=== PATIENT | male | born 1950 | race Caucasian/White ===

== ENCOUNTER 2022-09-05 22:51 | Emergency (ER) | payer OTHER ==
[~2022-09-05] VITALS: Ht 190.5 cm; Wt 150.0 kg
[2022-09-05 23:27] LABS: Basophils # (auto) 0.1 10 ^3/uL (0-0.2); Basophils % (auto) 0.8 % (0.0-2.0); Eosinophils # (auto) 0.1 10 ^3/uL (0-0.8); Eosinophils % (auto) 1.2 % (0.0-7.0); Hematocrit 41.9 % (41.0-53.0); Lymphocytes # (auto) 3.1 10 ^3/uL (0.4-5.4); Lymphocytes % (auto) 33.3 % (10.0-50.0); Mean Corpuscular Hemoglobin 31.2 pg (28.0-32.0); Mean Corpuscular Hgb Conc. 33.5 g/dL (32.0-36.0); Mean Corpuscular Volume 93.2 fL (80.0-100.0); Monocytes # (auto) 0.8 10 ^3/uL (0-1.3); Monocytes % (auto) 8.7 % (0.0-12.0); Neutrophils # (auto) 5.2 10 ^3/uL (1.6-8.6); Red Cell Distribution Width 13.8 % (11.8-14.3); White Blood Cell 9.2 10^3/uL (4.4-10.8)
[2022-09-05 23:34] VITALS: BP 122/73
[2022-09-05 23:38] LABS: INR 0.97 (0.9-1.15); Partial Thromboplastin Time 29.4 sec (24.6-33.4)
[2022-09-05 23:42] LABS: Albumin 3.7 g/dL (3.4-5.0); BUN/Creatinine Ratio 22.4; Calcium 8.3 mg/dL (8.5-10.1); Potassium 3.6 mmol/L (3.5-5.1)
[2022-09-05 23:45] LABS: Bilirubin, Total 0.3 mg/dL (0.2-1.0); Total Protein 7.8 g/dL (6.4-8.2)
[2022-09-06 00:52] LABS: Urine Bacteria NONE SEEN /hpf (None Seen); Urine Blood Negative /uL (Negative); Urine Specific Gravity 1.023 (1.001-1.035); Urine WBC 1 /hpf (0 - 3)
[2022-09-06 00:55] LABS: Amphetamine Screen, Urine NEGATIVE (NEGATIVE); Barbiturate Scree,Urine NEGATIVE (NEGATIVE); Benzodiazephine Screen, Urine NEGATIVE (NEGATIVE); Cannabinoid Screen, Urine NEGATIVE (NEGATIVE); Cocaine Screen, Urine NEGATIVE (NEGATIVE); Opiate Scree,Urine NEGATIVE (NEGATIVE); Phencyclidine Screen, Urine NEGATIVE (NEGATIVE)
== END 2022-09-06 02:14 | disposition home or self-care (01) ==
LOC: EDBD 22:51 → ER 22:51
DX: R55 Syncope and collapse (principal); F10.129 Alcohol abuse with intoxication, unspecified; I10 Essential (primary) hypertension
CPT/HCPCS: 36415; 70450; 71045; 80053; 80307; 80320; 81001; 82962; 84484; 85025; 85610; 85730

== ENCOUNTER 2025-07-03 15:02 | Inpatient (IN) | payer OTHER ==
[~2025-07-03] VITALS: Ht 188 cm; Wt 135.0 kg
[~2025-07-03 15:02] MED LIST: AMLO1TAB21 PO; ATOR20TA50 PO; HYDR25TA5 PO; LOS25T PO; MELO15TA29 PO; TADA5TAB16 PO; TAMS0.4C39 PO
[2025-07-03 15:16] VITALS: PULSE 126; RESP 26; O2SAT 98
[2025-07-03] MEDS ORDERED: CEFEPIME 1GM/50ML 50 ML IV ONE (15:30)
--- NOTE | 2025-07-03 15:30 | ED.PDOC ---
SOB-HPI HPI Comments 74 year old male with PMHx HTN presents to the ED via EMS with a chief complaint of shortness of breath onset last night. Per EMS, patient began experiencing shortness of breath last night, upon ED arrival O2 sat was 89% on RA, was placed on NRB. Upon ED arrival patient was tachycardiac with HR of 120, temperature 103.1 F, O2 sat 96% on NRB. No other symptoms or modifying factors present at this time. Chief Complaint: Shortness of Breath Time Seen by MD: 15:20 Primary Care Provider: NONE Reviewed notes: Medications, Allergies Information Source: Patient, Emergency Med Personnel Mode of Arrival: EMS Severity: Moderate Timing: Hours Duration: Since onset Context: At Rest PE Risk Factors: None History of: None Prehospital treatment: Oxygen Modifying Factors: Nothing Past Medical History PAST MEDICAL HISTORY: HTN Surgical History: Denies all surgeries Family History Family History: Unknown Social History Smoker: Non-Smoker Alcohol: Denies ETOH Use Drugs: Denies Drug Use Lives In: Home Constitutional: denies: chills, diaphoresis, fatigue, fever, malaise, sweats, weakness, others EENTM: denies: blurred vision, double vision, ear bleeding, ear discharge, ear drainage, ear pain, ear ringing, eye pain, eye redness, hearing loss, mouth pain, mouth swelling, nasal discharge, nose bleeding, nose congestion, nose pain, photophobia, tearing, throat pain, throat swelling, voice changes, others Respiratory: reports: shortness of breath; denies: cough, hemoptysis, orthopnea, SOB at rest, SOB with excertion, stridor, wheezing, others Cardiovascular: denies: chest pain, dizzy spells, diaphoresis, Dyspnea on exertion, edema, irregular heart beat, left arm pain, lightheadedness, palpitations, PND, syncope, others Gastrointestinal: denies: abdomen distended, abdominal pain, blood streaked bowels, constipated, diarrhea, dysphagia, difficulty swallowing, hematemesis, melena, nausea, poor appetite, poor fluid intake, rectal bleeding, rectal pain, vomiting, others Genitourinary: denies: burning, dysuria, flank pain, frequency, hematuria, incontinence, penile discharge, penile sore, pain, testicle pain, testicle swelling, urgency, others Neurological: denies: dizziness, fainting, headache, left sided numbness, left sided weakness, numbness, paresthesia, pre-existing deficit, right sided numbness, right sided weakness, seizure, speech problems, tingling, tremors, weakness, others Musculoskeletal: denies: back pain, gout, joint pain, joint swelling, muscle pain, muscle stiffness, neck pain, others Integumetry: denies: bruises, change in color, change in hair/nails, dryness, laceration, lesions, lumps, rash, wounds, others Allergic/Immunocompromised: denies: Difficulty Healing, Frequent Infections, Hives, Itching, others Hematologic/Lymphatic: denies: anemia, blood clots, easy bleeding, easy bruising, swollen glands, others Endocrine: denies: excessive hunger, excessive sweating, excessive thirst, excessive urination, flushing, intolerance to cold, intolerance to heat, unexpl ained weight gain, unexplained weight loss, others Psychiatric: denies: anxiety, bipolar disorder, depression, hopeless, panic disorder, schizophrenia, sleepless, suicidal, others All Other Systems: Reviewed and Negative Physical Exam General Appearance: Moderate Distress, Normal, Other (febrile) HEENT: Normal ENT Inspection, Pharynx Normal, TMs Normal Neck: Full Range of Motion, Non-Tender, Normal, Normal Inspection Respiratory: Chest Non-Tender, Other (Tachypneic ) Cardiovascular: No Edema, No JVD, No Murmur, No Gallop, Tachycardia Breast Exam: Deferred Gastrointestinal: No Organomegaly, Non Tender, No Pulsatile Mass, Normal Bowel Sounds, Soft Genitalia: Deferred Pelvic: Deferred Rectal: Deferred Extremities: No calf tenderness, Normal capillary refill, Normal inspection, Normal range of motion, Non-tender, No pedal edema Musculoskeletal : Apperance: Normal Neurologic: Alert, top closer II-XII nml as Tested, No Motor Deficits, Normal Affect, Normal Mood, No Sensory Deficits Cerebellar Function: Normal Reflexes: Normal Skin: Dry, Normal Color, Warm Lymphatic: No Adenopathy Was a procedure done? Was a procedure done?: No Differential Dx Differential Diagnosis: Anxiety, Bronchitis, CHF, COPD, Hyponatremia, Myocardial infarction, Pneumonia X-Ray, Labs, Meds, VS Vital Signs Date Time Temp Pulse Resp B/P (MAP) Pulse Ox O2 Delivery O2 Flow Rate FiO2 07/03/25 17:11 99.8 101 22 123/80 (94) 96 99.8 07/03/25 17:08 104 07/03/25 16:22 114 07/03/25 15:35 18 95 Nasal Cannula* 4 36 07/03/25 15:16 103.1 138 26 129/64 (85) 98 103.1 07/03/25 15:16 126 26 98 Non-Rebreather 15 N/A 07/03/25 15:07 103.1 120 38 135/80 96 103.1 Lab Test 07/03/25 15:40 07/03/25 15:28 Range/Units Urine Color Yellow Yellow Urine Clarity Clear Clear Urine pH 5.5 5.0-9.0 Urine Specific [place] 1.020 1.001-1.035 Urine Protein Trace H Negative Urine Ketones Trace Negative Urine Blood Trace H Negative /uL Urine Nitrite Negative Negative Urine Bilirubin Negative Negative Urine Urobilinogen Normal Negative mg/dL Urine Leukocyte Esterase Negative Negative /uL Urine RBC 4 0 - 3 /hpf Urine Microscopic WBC 1 0-3 /HPF Urine Squamous Epithelial Cells None seen <5 /hpf Urine Bacteria None seen None Seen /hpf Urine Hyaline Casts Few 0 - 2 /lpf Urine Mucus Few None Seen Urine Glucose Normal Normal mg/dL White Blood Count 6.1 4.4-10.8 10^3/uL Red Blood Count 4.74 4.5-5.90 10^6/uL Hemoglobin 14.3 13.5-17.5 g/dL Hematocrit 42.6 41.0-53.0 % Mean Corpuscular Volume 89.8 80.0-100.0 fL Mean Corpuscular Hemoglobin 30.2 28.0-32.0 pg Mean Corpuscular Hemoglobin Concent 33.6 32.0-36.0 g/dL Red Cell Distribution Width 13.8 11.8-14.3 % Platelet Count 246 140-450 10^3/uL Mean Platelet Volume 7.7 6.9-10.8 fL Neutrophils (%) (Auto) 37.0-80.0 % Lymphocytes (%) (Auto) 10.0-50.0 % Monocytes (%) (Auto) 0.0-12.0 % Basophils (%) (Auto) 0.0-2.0 % Neutrophils # (Auto) 1.6-8.6 10 ^3/uL Lymphocytes # (Auto) 0.4-5.4 10 ^3/uL Monocytes # (Auto) 0-1.3 10 ^3/uL Differential Total Cells Counted 100.0 100 Neutrophils % (Manual) 72.0 37.0-80.0 Band Neutrophils % (Manual) 17.0 Lymphocytes % (Manual) 7.0 L 10.0-50.0 Monocytes % (Manual) 4.0 0-12 Eosinophils % (Manual) 0 0-7 Basophils % (Manual) 0 0.0-2.0 Metamyelocytes % (manual) 0 Myelocytes % (Manual) 0 Promyelocytes % (Manual) 0 Blast Cells % (Manual) 0 Reactive Lymphocytes 0 Platelet Estimate Adequate Red Blood Cell Morphology Normal Prothrombin Time 11.1 9.3-11.8 sec Prothrombin Time INR 1.05 0.9-1.15 Activated Partial Thromboplast Time 22.7 L 24.5-34.5 SEC Sodium Level 144 136-145 mmol/L Potassium Level 4.0 3.5-5.1 mmol/L Chloride Level 105 98-107 mmol/L Carbon Dioxide Level 28 20-31 mmol/L Anion Gap 11 5-15 Blood Urea Nitrogen 13 9-23 mg/dL Creatinine 1.02 0.700-1.30 mg/dL Glomerular Filtration Rate Calc 78 >90 mL/min BUN/Creatinine Ratio 12.7 10.0-20.0 Serum Glucose 103 74-106 mg/dL Lactic Acid Level 1.9 0.4-2.0 mmol/L Calcium Level 8.9 8.7-10.4 mg/dL Total Bilirubin 0.7 0.2-1.0 mg/dL Aspartate Amino Transferase (AST) 25 13-40 U/L Alanine Aminotransferase (ALT) 35 7-40 U/L Alkaline Phosphatase 71 46-116 U/L Troponin I High Sensitivity 3 L </=54 ng/L Total Protein 7.3 5.7-8.2 g/dL Albumin 4.2 3.2-4.8 g/dL Current Medications Medications (Trade) Dose Ordered Sig/Armando Route Start Time Stop Time Status Last Admin Lactated Ringer's 2,450 ml @ 2,450 mls/hr ONCE ONCE IV 07/03/25 15:30 07/03/25 16:29 DC 07/03/25 15:49 Vancomycin HCl 250 ml @ 250 mls/hr ONCE ONCE IV 07/03/25 15:30 07/03/25 16:29 DC 07/03/25 16:55 Albuterol (Ventolin Medneb) 5 mg ONCE ONCE NEB 07/03/25 15:30 07/03/25 15:31 DC 07/03/25 15:43 Ipratropium Henderson (Atrovent Medneb) 0.5 mg ONCE ONCE NEB 07/03/25 15:30 07/03/25 15:31 DC 07/03/25 15:43 Acetaminophen (Ofirmev) 1,000 mg ONCE ONCE IV 07/03/25 15:30 07/03/25 15:31 DC 07/03/25 15:41 Cefepime HCl 50 ml @ 50 mls/hr ONCE ONCE IV 07/03/25 16:15 07/03/25 17:14 DC 07/03/25 16:09 [place] [id number] Ph: [phone] DIAGNOSTIC IMAGING Diagnostic Imaging Report : [id number] Signed PATIENT: ANIL AVILES PACCT: [id number] UNIT: [id number] : 1950 LOC: ER ROOM / BED: / AGE / SEX: 74 / M ADM STATUS: REG ER SERVICE 1521 ORDERING PHYSICIAN: MYRON WEAVER MD PROCEDURE(s): CXRP - CHEST PORTABLE REASON: sob ORDER NUMBER(s): [id number], ACCESSION NUMBER(s): [id number] CHEST RADIOGRAPH Indication: sob Technique: Single frontal view of the chest was obtained Comparison: CXRP on DOS: 09/05/22 FINDINGS: Lines and Tubes: None Lungs: Persistent prominence to the central interstitium is noted. No previous studies are available for comparison. It would be helpful to obtain the radiographs from 09/05/2022 for comparison. Pleura: No effusion. No pneumothorax. Cardiomediastinal contours: Cardiomegaly is present. Bones: No acute osseous abnormality. IMPRESSION: 1. Prominent interstitial disease in the right base and right upper lung field. 2. Cardiomegaly is ATED BY: REJI POON Jr. DO DICTATED DATE/TIME: 07/03/25 160 SIGNED BY: REJI POON Jr., SIGNED DATE/TIME: 07/03/25 160 CC: Time of 1ST Reevaluation: 15:50 Reevaluation 1ST: Unchanged Patient Education/Counseling: Diagnosis, Treatment, Prognosis Family Education/Counseling: No Family Present SEPSIS Sepsis Screen Date sepsis recognized/suspect: Jul 03, 2025 Time Sepsis recognized/suspect: 152 Recent Procedure: No On Antibiotic Therapy: No Respiratory Rate >20: Yes Heart Rate >90: Yes Temp<36 C (96.8 F) or >38.3 C: Yes SBP <90 or MAP <65 mmHG: No New Acute Mental Status Change: No Is the patient on CPAP, BIPAP,: No Physician Orders [employer] (07/03/25 15:15) Blood Culture (07/03/25 15:15) Chest Portable (07/03/25 15:21) Accucheck (07/03/25 15:21) Notify Md If Map <65 Or Bp<90 (07/03/25 15:21) If Map<65 Start Vasopressor (07/03/25 15:21) Sepsis Reassesment After Fluid (07/03/25 16:21) Vital Signs Date Time Temp Pulse Resp B/P (MAP) Pulse Ox O2 Delivery O2 Flow Rate FiO2 07/03/25 17:11 99.8 101 22 123/80 (94) 96 99.8 07/03/25 17:08 104 07/03/25 16:22 114 07/03/25 15:35 18 95 Nasal Cannula* 4 36 07/03/25 15:16 103.1 138 26 129/64 (85) 98 103.1 07/03/25 15:16 126 26 98 Non-Rebreather 15 N/A 07/03/25 15:07 103.1 120 38 135/80 96 103.1 Laboratory Tests Test 07/03/25 15:28 Lactic Acid Level 1.9 mmol/L (0.4-2.0) White Blood Count 6.1 10^3/uL (4.4-10.8) Medications Medications Dose Ordered Sig/Armando Route Start Time Stop Time Status Last Admin Dose Admin Acetaminophen 1,000 mg ONCE ONCE IV 07/03/25 15:30 07/03/25 15:31 DC 07/03/25 15:41 Albuterol 5 mg ONCE ONCE NEB 07/03/25 15:30 07/03/25 15:31 DC 07/03/25 15:43 Cefepime HCl 50 ml @ 50 mls/hr ONCE ONCE IV 07/03/25 16:15 07/03/25 17:14 DC 07/03/25 16:09 Ipratropium Henderson 0.5 mg ONCE ONCE NEB 07/03/25 15:30 07/03/25 15:31 DC 07/03/25 15:43 Lactated Ringer's 2,450 ml @ 2,450 mls/hr ONCE ONCE IV 07/03/25 15:30 07/03/25 16:29 DC 07/03/25 15:49 Vancomycin HCl 250 ml @ 250 mls/hr ONCE ONCE IV 07/03/25 15:30 07/03/25 16:29 DC 07/03/25 16:55 Departure 1 Departure Time of Disposition: 17:44 ([place] Authorization to admit [facility]: [id number] presents with concern for sepsis and respiratory failure. Patient likely with a multifocal pneumonia. We will empirically cover patient with antibiotics we will not give the patient full fluid boluses patient appears clinically volume overloaded. We will admit patient for further workup and expert consultation) Impression: Primary Impression: Sepsis Additional Impressions: Multifocal pneumonia Suspected congestive heart failure Disposition: ADMITTED INPATIENT Admit to: [facility] Condition: Guarded Critical Care Note Critical Care Time?: Yes Critical care comment: Acute hypoxic respiratory failure Authorized and Performed by: Myron Weaver MD Total critical care time: Approximately 42 minutes Due to a high probability of clinically significant, life threatening deterioration, the patient required my highest level of preparedness to interven e emergently and I personally spent this critical care time directly and personally managing the patient. This critical care time included obtaining a history; examining the patient; pulse oximetry; ordering and review of studies; arranging urgent treatment with development of a management plan; evaluation of patient's response to treatment; frequent reassessment; and, discussions with other providers. This critical care time was performed to assess and manage the high probability of imminent, life-threatening deterioration that could result in multi-organ failure. It was exclusive of separately billable procedures and treating other patients and teaching time. Please see my other sections and the rest of the note for further information on patient assessment and treatment. Stability Stability form required: No Heart Score Heart Score: Heart Score Response (Comments) Value History N/A 0 EKG N/A 0 Age N/A 0 Risk Factors N/A 0 Troponin N/A 0 Total 0 I personally scribed for MYRON WEAVER MD ([email or web address]) on 07/03/25 at 15:30. Electr onically submitted by Tara Menjivar ([email or web address]). I personally scribed for MYRON WEAVER MD ([email or web address]) on 07/03/25 at 16:08. Electronically submitted by Tara Menjivar ([email or web address]). MYRON WEAVER MD Jul 03, 2025 15:30
[2025-07-03] MEDS: ACETAMINOPHEN IV 1000 MG/100ML (10MG/ML) IV ONE (15:41)
[2025-07-03] MEDS: IPRATROPIUM BROM 0.5 MG/2.5ML INH SOL NEB ONE (15:43)
[2025-07-03] MEDS: ALBUTEROL SULF 2.5 MG/0.5ML(0.5%) NEB SOLN NEB ONE (15:43)
[2025-07-03 15:45] LABS: Hematocrit 42.6 % (41.0-53.0); Hemoglobin 14.3 g/dL (13.5-17.5); Mean Corpuscular Hemoglobin 30.2 pg (28.0-32.0); Mean Corpuscular Volume 89.8 fL (80.0-100.0)
[2025-07-03] MEDS: LACTATED RINGER'S 2,450 ML IV ONE (15:49)
[2025-07-03 15:53] LABS: Urine Protein, UAD TRACE (Negative)
[2025-07-03 16:03] LABS: Alanine Aminotransferase 35 U/L (7-40); Albumin 4.2 g/dL (3.2-4.8); Alkaline Phosphatase 71 U/L (46-116); Anion Gap 11 (5-15); BUN/Creatinine Ratio 12.7 (10.0-20.0); Bilirubin, Total 0.7 mg/dL (0.2-1.0); Blood Urea Nitrogen 13 mg/dL (9-23); Calcium 8.9 mg/dL (8.7-10.4); Carbon Dioxide 28 mmol/L (20-31); Chloride 105 mmol/L (98-107); Glucose 103 mg/dL (74-106); Potassium 4.0 mmol/L (3.5-5.1); Sodium 144 mmol/L (136-145); Total Protein 7.3 g/dL (5.7-8.2)
--- NOTE | 2025-07-03 16:03 | DVH ---
CHEST RADIOGRAPH Indication: sob Technique: Single frontal view of the chest was obtained Comparison: CXRP on DOS: 09/05/22 FINDINGS: Lines and Tubes: None Lungs: Persistent prominence to the central interstitium is noted. No previous studies are available for comparison. It would be helpful to obtain the radiographs from 09/05/2022 for comparison. Pleura: No effusion. No pneumothorax. Cardiomediastinal contours: Cardiomegaly is present. Bones: No acute osseous abnormality. IMPRESSION: 1. Prominent interstitial disease in the right base and right upper lung field. 2. Cardiomegaly is
[2025-07-03 16:08] LABS: INR 1.05 (0.9-1.15); Partial Thromboplastin Time 22.7 SEC (24.5-34.5); Prothrombin Time 11.1 sec (9.3-11.8)
[2025-07-03] MEDS: CEFEPIME 1GM/50ML 50 ML IV ONE (16:09)
--- NOTE | 2025-07-03 16:24 | ECG ---
[facility] Test Date: 2025-07-03 Test Time: 16:22:33 Pat Name: ANIL AVILES Department: Room: 0209T Gender: M Pole Maker: PAUL : 1950 Requested By: MYRON WEAVER Order Number: [id number] Reading MD: Crow Fernandez Measurements Intervals [place] Rate: 114 P: 39 ID: [id number] QRS: -58 QRSD: 110 T: -8 QT: 325 QTc: 448 Interpretive Statements Sinus tachycardia Left anterior fascicular block Low voltage, precordial leads Probable anteroseptal infarct, old Electronically Signed On 07-06-2025 19:22:29 PST by Crow Fernandez Please click the below link to view image of tracing.
[2025-07-03 16:36] LABS: Total Cells Counted 100.0 (100)
[2025-07-03 16:37] LABS: RBC Morphology Normal
[2025-07-03] MEDS: VANCOMYCIN 1GM/250ML KIT 250 ML IV ONE (16:55)
[2025-07-03] MEDS ORDERED: MORPHINE SULFATE INJ 2 MG/ml SYRG IV PRN (19:15)
[2025-07-03] MEDS ORDERED: ACETAMINOPHEN 325 MG TAB PO PRN (19:15)
[2025-07-03] MEDS ORDERED: NITROGLYCERIN 0.4 MG SL TAB SL PRN (19:15)
[2025-07-03] MEDS ORDERED: VANCOMYCIN PER PHARMACY 0 MG IV SCH (19:15)
[2025-07-03] MEDS ORDERED: ONDANSETRON HCL 4 MG/2 ML VIAL IV PRN (19:15)
[2025-07-03 19:46] VITALS: PULSE 116; RESP 18; O2SAT 93
[2025-07-03 20:22] VITALS: O2SAT 94
[2025-07-03 20:23] VITALS: BP 78/49; PULSE 109; RESP 18; TEMP 99.8; O2SAT 95
[2025-07-03] MEDS: ATORVASTATIN 20 MG TAB PO SCH (22:07)
[2025-07-04] VITALS (7 sets, daily range): BP systolic 137–154; BP diastolic 75–92; PULSE 80–98; RESP 16–18; TEMP 98.1–98.2; O2SAT 94–100
--- NOTE | 2025-07-04 00:15 | DVHHP2 ---
History of Present Illness Reason for Visit: Shortness for breath History of Present Illness 74-year-old male presents for evaluation of shortness for breath. Patient reports a two day history of worsening shortness for breath with chills and palpitations. Denies chest pain. Past Medical History Dyslipidemia, hypertension, BPH Past Surgical History Denies Family History Noncontributory Smoke: No ALCOHOL: none Drugs: None Lives: with Family Review of Systems Review of Systems Review of systems are currently negative otherwise addressed in HPI Allergies: Uncoded Allergies: DEMORAL (Allergy, Unknown, 09/05/22) Medications Current Medications Medications Dose Ordered Sig/Armando Route Start Time Stop Time Status Last Admin Dose Admin Cefepime HCl 50 ml @ 12.5 mls/hr Q12H IV 07/04/25 04:00 Vancomycin HCl 0 ml @ 0 mls/hr PER PHARMACY IV 07/03/25 19:15 Albuterol 2.5 mg Q6HPRN PRN NEB 07/03/25 19:15 Atorvastatin Calcium 20 mg HS PO 07/03/25 22:00 07/03/25 22:07 20 MG Ondansetron HCl 4 mg Q4HP PRN IV 07/03/25 19:15 Acetaminophen 650 mg Q6HP PRN PO 07/03/25 19:15 Nitroglycerin 0.4 mg Q5MINP PRN SL 07/03/25 19:15 Morphine Sulfate 2 mg Q30M PRN IV 07/03/25 19:15 Vancomycin HCl 250 ml @ 250 mls/hr Q12H IV 07/04/25 05:00 Exam Vital Signs Vital Signs Date Time Temp Pulse Resp B/P (MAP) Pulse Ox O2 Delivery O2 Flow Rate FiO2 07/04/25 00:00 106 07/03/25 20:23 95 Nasal Cannula 4.0 07/03/25 20:23 99.8 18 78/49 36 99.8 Exam Gen: 74-year-old male in mild distress Skin: Warm, dry, normal color and texture, no rash. HEENT: Normocephalic atraumatic, mucous membranes moist and pink. Neck: Cervical and supraclavicular nodes normal without enlargement, trachea is midline, thyroid gland is normal without masses. Pulmonary: Bilateral rhonchi Cardiac: Regular rate and rhythm. No murmur Abdomen: Soft, nontender, nondistended, bowel sounds present all 4 quadrants, no guarding, no rigidity, no organomegaly. Extremities: No cyanosis, clubbing, no edema Neuro: Cranial nerves II through XII grossly intact, normal affect and speech, no focal motor deficits. Labs/Xrays ORDERING PHYSICIAN: MYRON WEAVER MD PROCEDURE(s): CXRP - CHEST PORTABLE REASON: sob ORDER NUMBER(s): [id number], ACCESSION NUMBER(s): [id number] CHEST RADIOGRAPH Indication: sob Technique: Single frontal view of the chest was obtained Comparison: CXRP on DOS: 09/05/22 FINDINGS: Lines and Tubes: None Lungs: Persistent prominence to the central interstitium is noted. No previous studies are available for comparison. It would be helpful to obtain the radiographs from 09/05/2022 for comparison. Pleura: No effusion. No pneumothorax. Cardiomediastinal contours: Cardiomegaly is present. Bones: No acute osseous abnormality. IMPRESSION: 1. Prominent interstitial disease in the right base and right upper lung field. 2. Cardiomegaly is Labs Test 07/03/25 15:40 07/03/25 15:28 Range/Units Urine Color Yellow Yellow Urine Clarity Clear Clear Urine pH 5.5 5.0-9.0 Urine Specific [place] 1.020 1.001-1.035 Urine Protein Trace H Negative Urine Ketones Trace Negative Urine Blood Trace H Negative /uL Urine Nitrite Negative Negative Urine Bilirubin Negative Negative Urine Urobilinogen Normal Negative mg/dL Urine Leukocyte Esterase Negative Negative /uL Urine RBC 4 0 - 3 /hpf Urine Microscopic WBC 1 0-3 /HPF Urine Squamous Epithelial Cells None seen <5 /hpf Urine Bacteria None seen None Seen /hpf Urine Hyaline Casts Few 0 - 2 /lpf Urine Mucus Few None Seen Urine Glucose Normal Normal mg/dL White Blood Count 6.1 4.4-10.8 10^3/uL Red Blood Count 4.74 4.5-5.90 10^6/uL Hemoglobin 14.3 13.5-17.5 g/dL Hematocrit 42.6 41.0-53.0 % Mean Corpuscular Volume 89.8 80.0-100.0 fL Mean Corpuscular Hemoglobin 30.2 28.0-32.0 pg Mean Corpuscular Hemoglobin Concent 33.6 32.0-36.0 g/dL Red Cell Distribution Width 13.8 11.8-14.3 % Platelet Count 246 140-450 10^3/uL Mean Platelet Volume 7.7 6.9-10.8 fL Neutrophils (%) (Auto) 37.0-80.0 % Lymphocytes (%) (Auto) 10.0-50.0 % Monocytes (%) (Auto) 0.0-12.0 % Basophils (%) (Auto) 0.0-2.0 % Neutrophils # (Auto) 1.6-8.6 10 ^3/uL Lymphocytes # (Auto) 0.4-5.4 10 ^3/uL Monocytes # (Auto) 0-1.3 10 ^3/uL Differential Total Cells Counted 100.0 100 Neutrophils % (Manual) 72.0 37.0-80.0 Band Neutrophils % (Manual) 17.0 Lymphocytes % (Manual) 7.0 L 10.0-50.0 Monocytes % (Manual) 4.0 0-12 Eosinophils % (Manual) 0 0-7 Basophils % (Manual) 0 0.0-2.0 Metamyelocytes % (manual) 0 Myelocytes % (Manual) 0 Promyelocytes % (Manual) 0 Blast Cells % (Manual) 0 Reactive Lymphocytes 0 Platelet Estimate Adequate Red Blood Cell Morphology Normal Prothrombin Time 11.1 9.3-11.8 sec Prothrombin Time INR 1.05 0.9-1.15 Activated Partial Thromboplast Time 22.7 L 24.5-34.5 SEC Sodium Level 144 136-145 mmol/L Potassium Level 4.0 3.5-5.1 mmol/L Chloride Level 105 98-107 mmol/L Carbon Dioxide Level 28 20-31 mmol/L Anion Gap 11 5-15 Blood Urea Nitrogen 13 9-23 mg/dL Creatinine 1.02 0.700-1.30 mg/dL Glomerular Filtration Rate Calc 78 >90 mL/min BUN/Creatinine Ratio 12.7 10.0-20.0 Serum Glucose 103 74-106 mg/dL Lactic Acid Level 1.9 0.4-2.0 mmol/L Calcium Level 8.9 8.7-10.4 mg/dL Total Bilirubin 0.7 0.2-1.0 mg/dL Aspartate Amino Transferase (AST) 25 13-40 U/L Alanine Aminotransferase (ALT) 35 7-40 U/L Alkaline Phosphatase 71 46-116 U/L Troponin I High Sensitivity 3 L </=54 ng/L B-Type Natriuretic Peptide 52.04 0-100 pg/mL Total Protein 7.3 5.7-8.2 g/dL Albumin 4.2 3.2-4.8 g/dL SEPSIS Sepsis Screen Date sepsis recognized/suspect: Jul 03, 2025 Time Sepsis recognized/suspect: 2033 Recent Procedure: No On Antibiotic Therapy: Yes Respiratory Rate >20: No Heart Rate >90: No Temp<36 C (96.8 F) or >38.3 C: No SBP <90 or MAP <65 mmHG: No New Acute Mental Status Change: No Is the patient on CPAP, BIPAP,: No Physician Orders Vancomycin Per Pharmacy (07/03/25 19:15) Albuterol Medneb (Ventolin Medneb) (07/03/25 19:15) Basic Metabolic Panel (07/04/25 04:00) Atorvastatin (Lipitor) (07/03/25 22:00) Admit (07/03/25 19:07) Ondansetron Hcl (Zofran) (07/03/25 19:15) Complete Blood Count (07/04/25 04:00) Cardiac Diet-2gna,Lofat,Lochol (07/04/25 Breakfast) Echo 2d Mode Cardiac Dop (07/03/25 19:07) Condition: Fair (07/03/25 19:07) Acetaminophen Tablet (Tylenol Tablet) (07/03/25 19:15) Bedrest With Bathroom Privileg (07/03/25 19:07) Nitroglycerin Sublingual (Ntrostat Subli (07/03/25 19:15) Morphine Sulfate Injection (07/03/25 19:15) Stat Ekg For Chest Pain (07/03/25 19:07) Notify Md Of Changes From Base (07/03/25 19:07) Meeting Coordinator For 24 Hours (07/03/25 19:07) Emergency Dysrhythmia Protocol (07/03/25 19:07) Rhythm Strips Once Every Shift (07/03/25 19:07) Oxygen By Nasal Cannula (07/03/25 19:07) Cefepime 1gm/50ml (Maxipime 1gm/50ml) (07/04/25 04:00) Vancomycin 1gm/250ml Kit (07/04/25 05:00) Vancomycin Per Pharmacy Protoc (07/05/25 05:00) Vancomycin,Trough (07/05/25 04:00) Vital Signs Date Time Temp Pulse Resp B/P (MAP) Pulse Ox O2 Delivery O2 Flow Rate FiO2 07/04/25 00:00 106 07/03/25 20:23 95 Nasal Cannula 4.0 07/03/25 20:23 99.8 109 18 78/49 4.0 36 99.8 07/03/25 20:22 94 Nasal Cannula* 4 36 07/03/25 20:00 104 07/03/25 19:46 116 18 93 Nasal Cannula* 4 36 07/03/25 19:46 97.9 116 18 96/61 (73) 93 97.9 07/03/25 19:01 109 18 78/49 (59) 93 07/03/25 17:11 99.8 101 22 123/80 (94) 96 99.8 07/03/25 17:08 104 07/03/25 16:22 114 Laboratory Tests Test 07/03/25 15:28 Lactic Acid Level 1.9 mmol/L (0.4-2.0) White Blood Count 6.1 10^3/uL (4.4-10.8) Medications Medications Dose Ordered Sig/Armando Route Start Time Stop Time Status Last Admin Dose Admin Acetaminophen 1,000 mg ONCE ONCE IV 07/03/25 15:30 07/03/25 15:31 DC 07/03/25 15:41 1,000 MG Albuterol 5 mg ONCE ONCE NEB 07/03/25 15:30 07/03/25 15:31 DC 07/03/25 15:43 5 MG Atorvastatin Calcium 20 mg HS PO 07/03/25 22:00 07/03/25 22:07 20 MG Cefepime HCl 50 ml @ 50 mls/hr ONCE ONCE IV 07/03/25 16:15 07/03/25 17:14 DC 07/03/25 16:09 50 MLS/HR Ipratropium [place] 0.5 mg ONCE ONCE NEB 07/03/25 15:30 07/03/25 15:31 DC 07/03/25 15:43 0.5 MG Lactated Ringer's 2,450 ml @ 2,450 mls/hr ONCE ONCE IV 07/03/25 15:30 07/03/25 16:29 DC 07/03/25 15:49 2,450 MLS/HR Vancomycin HCl 250 ml @ 250 mls/hr ONCE ONCE IV 07/03/25 15:30 07/03/25 16:29 DC 07/03/25 16:55 250 MLS/HR Assessment/Plan Assessment/Plan Assessment Community-acquired pneumonia Sepsis Hypotension Plan Admit the patient to telemetry to the hospitalist Cefepime/vancomycin Maintenance IV fluids Med nebs Continue treatment per orders. Plan discussed with: Patient My Orders Orders - BERNARDINO JARVIS AGACNP Procedure Category Date Status Time Vancomycin Per PHA 07/03/25 In Process Pharmacy 19:15 Albuterol Medneb PHA 07/03/25 In Process (Ventolin Medneb) 19:15 Basic Metabolic Panel LAB 07/04/25 Logged 04:00 Atorvastatin (Lipitor) PHA 07/03/25 In Process 22:00 Admit ADMIT 07/03/25 Transmitted 19:07 Ondansetron Hcl PHA 07/03/25 In Process (Zofran) 19:15 Complete Blood Count LAB 07/04/25 Logged 04:00 Cardiac DIET 07/04/25 Transmitted Diet-2gna,Lofat,Lochol Breakfast Echo 2d Mode Cardiac US 07/03/25 Logged DOP 19:07 Condition: Fair [facility] 07/03/25 In Process 19:07 Acetaminophen Tablet PHA 07/03/25 In Process (Tylenol Tablet) 19:15 Bedrest With Bathroom DANG 07/03/25 In Process Privileg 19:07 Nitroglycerin [facility] 07/03/25 In Process Sublingual (Ntrostat 19:15 Morphine Sulfate PHA 07/03/25 In Process Injection 19:15 Stat Ekg For Chest [facility] 07/03/25 In Process Pain 19:07 Notify Of Changes [facility] 07/03/25 In Process From Base 19:07 Meeting Coordinator For [facility] 07/03/25 In Process 24 Hours 19:07 Emergency Dysrhythmia [facility] 07/03/25 In Process Protocol 19:07 Rhythm Strips Once [facility] 07/03/25 In Process Every Shift 19:07 Oxygen By Nasal RT 07/03/25 Transmitted Cannula 19:07 Cefepime 1gm/50ml PHA 07/04/25 In Process (Maxipime 1gm/50ml) 04:00 Vancomycin 1gm/250ml PHA 07/04/25 In Process Kit 05:00 Vancomycin Per DANG 07/05/25 In Process Pharmacy Protoc 05:00 Vancomycin,Trough LAB 07/05/25 Verified 04:00 Date of Service: Jul 03, 2025 Billing Provider: BERNARDINO JARIVS Common Visit Codes: [id number] INP/OBS CARE (HIGH) BERNARDINO JARVIS Jul 04, 2025 00:15
[2025-07-04] MEDS: CEFEPIME 1GM/50ML 50 ML IV SCH (04:24)
[2025-07-04 04:59] LABS: Anion Gap 14 (5-15); Calcium 8.9 mg/dL (8.7-10.4); Carbon Dioxide 22 mmol/L (20-31); Chloride 103 mmol/L (98-107); Potassium 4.3 mmol/L (3.5-5.1); Sodium 139 mmol/L (136-145)
[2025-07-04] MEDS: VANCOMYCIN 1GM/250ML KIT 250 ML IV SCH ×2 (05:00→22:37)
[2025-07-04 05:01] LABS: Hematocrit 39.6 % (41.0-53.0); Hemoglobin 13.0 g/dL (13.5-17.5); Mean Corpuscular Hemoglobin 29.8 pg (28.0-32.0); Mean Corpuscular Volume 91.3 fL (80.0-100.0); Nucleated Red Blood Cells % 0.0 %
[2025-07-04 05:05] LABS: Glucose 94 mg/dL (74-106)
[2025-07-04 06:09] LABS: BUN/Creatinine Ratio 10.1 (10.0-20.0); Blood Urea Nitrogen 20 mg/dL (9-23)
[2025-07-04] MEDS: ALBUTEROL SULF 2.5 MG/0.5ML(0.5%) NEB SOLN NEB PRN (06:54)
[2025-07-04] MEDS: LORazepam 2MG/ML-1ML VIAL IV ONE (12:41)
[2025-07-04] MEDS ORDERED: LORazepam 2MG/ML-1ML VIAL IV PRN (17:15)
--- NOTE | 2025-07-04 17:22 | DVHPN2 ---
Progress Note Date Seen: Jul 04, 2025 Medical Necessity Reason Pt with a Central, PICC or Fol: No Subjective Patient reports: No new complaints Review of Systems: HEENT:Normal, CVS:Normal, RESPIRATORY:Normal, GI:Normal, :Normal, MSK:Normal, NEURO:Normal Objective vital signs Vital Sign Date Time Temp Pulse Resp B/P (MAP) Pulse Ox O2 Delivery O2 Flow Rate FiO2 07/04/25 15:00 143/98 (113) 07/04/25 14:00 104 18 93 07/04/25 08:00 Nasal Cannula* 4 36 07/03/25 20:23 99.8 99.8 Total Intake and Output 07/03/25 07/03/25 07/04/25 15:00 23:00 07:00 Intake Total 2750 ml 25.0 ml Balance 2750 ml 25.0 ml medications Current Medications Medications Dose Ordered Sig/Armando Route Start Time Stop Time Status Last Admin Dose Admin Cefepime HCl 50 ml @ 12.5 mls/hr Q12H IV 07/04/25 04:00 07/04/25 16:31 12.5 MLS/HR Vancomycin HCl 0 ml @ 0 mls/hr PER PHARMACY IV 07/03/25 19:15 Albuterol 2.5 mg Q6HPRN PRN NEB 07/03/25 19:15 07/04/25 06:54 2.5 MG Atorvastatin Calcium 20 mg HS PO 07/03/25 22:00 07/03/25 22:07 20 MG Ondansetron HCl 4 mg Q4HP PRN IV 07/03/25 19:15 Acetaminophen 650 mg Q6HP PRN PO 07/03/25 19:15 Nitroglycerin 0.4 mg Q5MINP PRN SL 07/03/25 19:15 Morphine Sulfate 2 mg Q30M PRN IV 07/03/25 19:15 Examination: GENERAL:Normal, HEENT:Normal, NECK:Normal, LUNGS:Normal, LUNGS:Abnormal (rales+), CVS:Normal, ABDOMEN:Normal, MSK:Normal, SKIN:Normal, NEURO:Normal, :Normal laboratory and microbiology Laboratory Tests 07/04/25 16:14 07/04/25 04:32 Test 07/04/25 04:32 Range/Units Serum Glucose 94 74-106 mg/dL Microbiology Date/Time Source Procedure Growth Status 07/03/25 15:30 Blood Blood Culture - Preliminary NO GROWTH AFTER 24 HOURS OF INCUBATION. Resulted Problem List/Assessment/Plan Problem List/Assessment/Plan #1 sepsis with pneumonia- gram positive/neg: iv antibiotics #2 obesity #3 htn #4 acute renal failure ?vasomotor nephropathy #5 anxiety #6 ? acute diastolic/systolic heart failure #7 hyperlipidemia advance care planning- full code- time spent 19 mins Plan discussed with: Patient My Orders My Orders Orders - BERNARDINO PÉREZ MD Procedure Category Date Status Time Albuterol Medneb PHA 07/04/25 Logged (Ventolin Medneb) 18:00 Ipratropium Medneb PHA 07/04/25 Logged (Atrovent Medneb) 18:00 Complete Blood Count LAB 07/05/25 Verified 06:00 Comprehensive LAB 07/05/25 Verified Metabolic Panel 06:00 Chest Portable XY 07/05/25 Logged 06:00 Lorazepam 2mg/Ml Inj PHA 07/04/25 Logged (Ativan Inj) 17:15 Date of Service: Jul 04, 2025 Billing Provider: BERNARDINO PÉREZ MD Common Visit Codes: [id number] INP/OBS CARE(HIGH) Secondary Visit Codes: [id number] CARE PLAN 30 MINUTES BERNARDINO PÉREZ MD Jul 04, 2025 17:22
[2025-07-04] MEDS: IPRATROPIUM BROM 0.5 MG/2.5ML INH SOL NEB SCH (18:45)
[2025-07-04] MEDS: ALBUTEROL SULF 2.5 MG/0.5ML(0.5%) NEB SOLN NEB SCH (18:45)
[2025-07-05] VITALS (15 sets, daily range): BP systolic 119–140; BP diastolic 71–83; PULSE 74–95; RESP 16–21; TEMP 98.1–99.2; O2SAT 92–99
--- NOTE | 2025-07-05 05:28 | DVH ---
CHEST RADIOGRAPH INDICATION: pneumonia TECHNIQUE: Single frontal view of the chest was obtained COMPARISON: XY CHEST PORTABLE on DOS: 07/03/25, CHEST PORTABLE on DOS: 09/05/22, CXRP on DOS: 09/05/22 FINDINGS: Lines and Tubes: None Lungs: Persistently diminished lung volumes with concomitant exaggeration of the pulmonary vasculature. No evidence of focal consolidation. Pleura: No effusion. No pneumothorax. Cardiomediastinal contours: Unremarkable Bones: Unremarkable IMPRESSION: 1. Persistently diminished lung volumes with concomitant exaggeration of the pulmonary vasculature. 2. No evidence of focal consolidation.
[2025-07-05 07:02] LABS: Hematocrit 34.7 % (41.0-53.0); Hemoglobin 11.7 g/dL (13.5-17.5); Mean Corpuscular Hemoglobin 30.5 pg (28.0-32.0); Mean Corpuscular Volume 90.3 fL (80.0-100.0)
[2025-07-05 07:18] LABS: Alanine Aminotransferase 29 U/L (7-40); Albumin 3.6 g/dL (3.2-4.8); Alkaline Phosphatase 104 U/L (46-116); Anion Gap 10 (5-15); BUN/Creatinine Ratio 16.4 (10.0-20.0); Blood Urea Nitrogen 21 mg/dL (9-23); Calcium 8.8 mg/dL (8.7-10.4); Carbon Dioxide 24 mmol/L (20-31); Chloride 103 mmol/L (98-107); Glucose 58 mg/dL (74-106); Potassium 4.0 mmol/L (3.5-5.1); Sodium 137 mmol/L (136-145); Total Protein 6.2 g/dL (5.7-8.2)
[2025-07-05 07:19] LABS: Bilirubin, Total 0.8 mg/dL (0.2-1.0)
[2025-07-05 09:53] LABS: Total Cells Counted 100.0 (100)
--- NOTE | 2025-07-05 10:35 | DVHPN2 ---
Progress Note Date Seen: Jul 05, 2025 Medical Necessity Reason Pt with a Central, PICC or Fol: No Subjective Patient reports: No new complaints Review of Systems: HEENT:Normal, CVS:Normal, RESPIRATORY:Normal, GI:Normal, :Normal, MSK:Normal, NEURO:Normal Objective vital signs Vital Sign Date Time Temp Pulse Resp B/P (MAP) Pulse Ox O2 Delivery O2 Flow Rate FiO2 07/05/25 08:49 98.7 88 20 119/72 (88) 92 98.7 07/05/25 08:00 Nasal Cannula* 4 36 Total Intake and Output 07/04/25 07/04/25 07/05/25 15:00 23:00 07:00 Intake Total 262.5 ml 1000 ml Output Total 475 ml Balance 262.5 ml 525 ml medications Current Medications Medications Dose Ordered Sig/Armando Route Start Time Stop Time Status Last Admin Dose Admin Cefepime HCl 50 ml @ 12.5 mls/hr Q12H IV 07/04/25 04:00 07/05/25 04:14 12.5 MLS/HR Vancomycin HCl 0 ml @ 0 mls/hr PER PHARMACY IV 07/03/25 19:15 Albuterol 2.5 mg Q6HPRN PRN NEB 07/03/25 19:15 07/04/25 06:54 2.5 MG Atorvastatin Calcium 20 mg HS PO 07/03/25 22:00 07/03/25 22:07 20 MG Ondansetron HCl 4 mg Q4HP PRN IV 07/03/25 19:15 Acetaminophen 650 mg Q6HP PRN PO 07/03/25 19:15 Nitroglycerin 0.4 mg Q5MINP PRN SL 07/03/25 19:15 Morphine Sulfate 2 mg Q30M PRN IV 07/03/25 19:15 Albuterol 2.5 mg Q6HWA NEB 07/04/25 18:00 07/05/25 07:19 2.5 MG Ipratropium [place] 0.5 mg Q6HWA NEB 07/04/25 18:00 07/05/25 07:19 0.5 MG Lorazepam 0.5 mg Q8HP PRN IV 07/04/25 17:15 Vancomycin HCl 250 ml @ 250 mls/hr Q18H IV 07/04/25 23:00 07/04/25 22:37 250 MLS/HR Examination: GENERAL:Normal, HEENT:Normal, NECK:Normal, LUNGS:Normal, CVS:Normal, ABDOMEN:Normal, MSK:Normal, MSK:Abnormal (edema++), SKIN:Normal, NEURO:Normal, :Normal laboratory and microbiology Laboratory Tests 07/05/25 05:21 Test 07/05/25 05:21 Range/Units Serum Glucose 58 L 74-106 mg/dL Microbiology Date/Time Source Procedure Growth Status 07/03/25 15:30 Blood Blood Culture - Preliminary NO GROWTH AFTER 24 HOURS OF INCUBATION. Resulted Problem List/Assessment/Plan Problem List/Assessment/Plan #1 sepsis with pneumonia- gram positive/neg: iv antibiotics- meropenem/vanc, ct chest #2 obesity #3 htn #4 acute renal failure ?vasomotor nephropathy #5 anxiety #6 ? acute diastolic/systolic heart failure: lasix iv #7 hyperlipidemia advance care planning- full code- time spent 19 mins unstable for transfer Plan discussed with: Patient My Orders My Orders Orders - BERNARDINO PÉREZ MD Procedure Category Date Status Time Albuterol Medneb PHA 07/04/25 In Process (Ventolin Medneb) 18:00 Ipratropium Medneb PHA 07/04/25 In Process (Atrovent Medneb) 18:00 Chest Portable XY 07/05/25 Resulted 06:00 Lorazepam 2mg/Ml Inj PHA 07/04/25 In Process (Ativan Inj) 17:15 Meropenem 1gm Ivpb PHA 07/05/25 Logged (Merrem 1gm/50ml) 10:30 Meropenem 1gm Ivpb PHA 07/05/25 Logged (Merrem 1gm/50ml) 14:00 Furosemide Injection PHA 07/05/25 Logged (Lasix Injection) 10:30 Basic Metabolic Panel LAB 07/06/25 Verified 06:00 Complete Blood Count LAB 07/06/25 Verified 06:[address] 07/05/25 Logged 10:27 Date of Service: Jul 05, 2025 Billing Provider: BERNARDINO PÉREZ MD Common Visit Codes: [id number] INP/OBS CARE(HIGH) Secondary Visit Codes: [id number] CARE PLAN 30 MINUTES BERNARDINO PÉREZ MD Jul 05, 2025 10:35
[2025-07-05] MEDS: MEROPENEM 1GM IVPB 50 ML IV ONE (12:13)
[2025-07-05] MEDS: FUROSEMIDE 20 MG/2 ML VIAL IV ONE (12:13)
--- NOTE | 2025-07-05 14:21 | DVH ---
PROCEDURE: CT CHEST WITHOUT CONTRAST Reason for study/Clinical History: pneumonia, cough and fever Comparison Study: XY CHEST PORTABLE on DOS: 07/05/25, XY CHEST PORTABLE on DOS: 07/03/25, CHEST PORTABLE on DOS: 09/05/22, CXRP on DOS: 09/05/22 TECHNIQUE: Multidetector CT of the chest was performed from the lung apices to the upper abdomen without the use of intravenous contract. Axial, coronal and sagittal multiplanar reformats were performed. Radiation Dose Information: CT Dose: CTDI volume is 30.23 mGy. Dose-length product is 1132.05 mGy*cm The dose indicators for CT are the volume Computed Tomography (CT) Dose Index (CTDIvol) and the Dose Length Product (DLP), and are measured in units of mGy and mGy-cm, respectively. These indicators are not patient dose, but values generated from the CT scanner acquisition factors. The report includes radiation exposure data for exposures received during this examination. FINDINGS: Lower neck: Unremarkable. Lungs: Central airways patent. Dense airspace disease throughout the majority of the right lower lobe. Left lung is clear. Heart/Vascular Structures: Normal heart size. No pericardial effusion. Lymph Nodes: No adenopathy Pleura: No pleural effusion or significant pneumothorax. Musculoskeletal: No acute osseous abnormality. Soft tissues: Normal. Upper abdomen: Limited portions of the upper abdomen are unremarkable. IMPRESSION: Right lower lobe pneumonia. Radiation optimization: All CT scans at this facility use at least one of these dose optimization techniques: automated exposure control mA and/or kV adjustment per patient size (includes targeted exams where dose is matched to clinical indication) or iterative reconstruction.
--- NOTE | 2025-07-05 17:23 | DVHSR ---
APPROVED REPORT EXAM: Two-dimensional and M-mode echocardiogram with Doppler and color Doppler. Blood Pressure: 123/74 mmHg INDICATION Dyspnea Heart Failure EF RISK FACTORS Height: 72, Weight: 251 DIMENSIONS LVDd 5.8 (3.8-5.7cm) LA (2D) (1.9-4.0cm) Aortic Root 4.0 (2.0-3.7cm) LVDs 4.0 (2.5-4.0cm) LA (MM) (1.9-4.0cm) Aortic Cusp Exc 2.0 (1.5-2.0cm) EF (%) 58.0 (55-70%) Rt. Atrium (1.9-4.0cm) Asc. Aorta cm Mitral Valve Mitral Mitral Stenosis E wave 0.88m/s MV Mean GR. mmHg A wave 0.83m/s MV Peak GR. 62mmHg E/A ratio 1.1 2D MVA cm2 DECEL Time 152ms PRESS 1/2 Time 65ms IVRT ms Dop MVA 3.38cm2 Aortic Valve Aortic Valve Aortic Stenosis V1 1.09m/s AO Mean GR. 5mmHg V2 1.61m/s AO Peak GR. 10mmHg LVOT Diameter 2.3 (1.8-2.4cm) Doppler DIO 2.81cm2 Pulmonic Valve V2 0.99m/s Other Information Quality : Technically Limited Rhythm : Technically limited study due to body habitus, patient moving and patient non compliant. Patient kept wanting to get up and move during exam. Conclusion LVEF is normal at 50-55%, Wall motion not well visualized. Mild diastolic dysfunction Right ventricle mildly dilated, with function likely normal
[2025-07-05] MEDS: MEROPENEM 1GM IVPB 50 ML IV SCH (20:23)
[2025-07-06] VITALS (14 sets, daily range): BP systolic 138–164; BP diastolic 80–101; PULSE 69–81; RESP 16–20; TEMP 97.2–98.2; O2SAT 94–100
[2025-07-06 06:18] LABS: Chloride 103 mmol/L (98-107); Potassium 3.8 mmol/L (3.5-5.1); Sodium 138 mmol/L (136-145)
[2025-07-06 06:19] LABS: Anion Gap 10 (5-15); Carbon Dioxide 25 mmol/L (20-31); Hematocrit 34.1 % (41.0-53.0); Hemoglobin 11.4 g/dL (13.5-17.5); Mean Corpuscular Hemoglobin 30.1 pg (28.0-32.0); Mean Corpuscular Volume 90.0 fL (80.0-100.0); Nucleated Red Blood Cells % 0.0 %
[2025-07-06 06:25] LABS: BUN/Creatinine Ratio 29.3 (10.0-20.0); Blood Urea Nitrogen 27 mg/dL (9-23); Calcium 8.5 mg/dL (8.7-10.4); Glucose 86 mg/dL (74-106)
--- NOTE | 2025-07-06 14:35 | DVHDS2 ---
Discharge Summary Date of Admission Jul 03, 2025 at 19:07 Date of Discharge: Jul 06, 2025 Labs/Diagnostic Data: Laboratory Results Test 07/06/25 05:13 07/05/25 16:06 07/05/25 05:21 07/03/25 15:40 White Blood Count 21.7 10^3/uL (4.4-10.8) Red Blood Count 3.79 10^6/uL (4.5-5.90) Hemoglobin 11.4 g/dL (13.5-17.5) Hematocrit 34.1 % (41.0-53.0) Mean Corpuscular Volume 90.0 fL (80.0-100.0) Mean Corpuscular Hemoglobin 30.1 pg (28.0-32.0) Mean Corpuscular Hemoglobin Concent 33.5 g/dL (32.0-36.0) Red Cell Distribution Width 13.5 % (11.8-14.3) Platelet Count 205 10^3/uL (140-450) Mean Platelet Volume 8.5 fL (6.9-10.8) Neutrophils (%) (Auto) 87.0 % (37.0-80.0) Lymphocytes (%) (Auto) 7.5 % (10.0-50.0) Monocytes (%) (Auto) 4.6 % (0.0-12.0) Eosinophils (%) (Auto) 0.7 % (0.0-7.0) Basophils (%) (Auto) 0.2 % (0.0-2.0) Neutrophils # (Auto) 18.9 10 ^3/uL (1.6-8.6) Lymphocytes # (Auto) 1.6 10 ^3/uL (0.4-5.4) Monocytes # (Auto) 1.0 10 ^3/uL (0-1.3) Eosinophils # (Auto) 0.1 10 ^3/uL (0-0.8) Basophils # (Auto) 0 10 ^3/uL (0-0.2) Nucleated Red Blood Cells 0.0 % Sodium Level 138 mmol/L (136-145) Potassium Level 3.8 mmol/L (3.5-5.1) Chloride Level 103 mmol/L (98-107) Carbon Dioxide Level 25 mmol/L (20-31) Anion Gap 10 (5-15) Blood Urea Nitrogen 27 mg/dL (9-23) Creatinine 0.92 mg/dL (0.700-1.30) Glomerular Filtration Rate Calc 88 mL/min (>90) BUN/Creatinine Ratio 29.3 (10.0-20.0) Serum Glucose 86 mg/dL (74-106) Calcium Level 8.5 mg/dL (8.7-10.4) Vancomycin Level Trough 8.9 ug/mL (5-10) Differential Total Cells Counted 100.0 (100) Neutrophils % (Manual) 70 (37.0-80.0) Band Neutrophils % (Manual) 15 Lymphocytes % (Manual) 8 (10.0-50.0) Monocytes % (Manual) 6 (0-12) Eosinophils % (Manual) 0 (0-7) Basophils % (Manual) 0 (0.0-2.0) Metamyelocytes % (manual) 0 Myelocytes % (Manual) 1 Promyelocytes % (Manual) 0 Blast Cells % (Manual) 0 Reactive Lymphocytes 0 Platelet Estimate Adequate Total Bilirubin 0.8 mg/dL (0.2-1.0) Aspartate Amino Transferase (AST) 44 U/L (13-40) Alanine Aminotransferase (ALT) 29 U/L (7-40) Alkaline Phosphatase 104 U/L (46-116) Total Protein 6.2 g/dL (5.7-8.2) Albumin 3.6 g/dL (3.2-4.8) Urine Color Yellow (Yellow) Urine Clarity Clear (Clear) Urine pH 5.5 (5.0-9.0) Urine Specific [place] 1.020 (1.001-1.035) Urine Protein Trace (Negative) Urine Ketones Trace (Negative) Urine Blood Trace /uL (Negative) Urine Nitrite Negative (Negative) Urine Bilirubin Negative (Negative) Urine Urobilinogen Normal mg/dL (Negative) Urine Leukocyte Esterase Negative /uL (Negative) Urine RBC 4 /hpf (0 - 3) Urine Microscopic WBC 1 /HPF (0-3) Urine Squamous Epithelial Cells None seen /hpf (<5) Urine Bacteria None seen /hpf (None Seen) Urine Hyaline Casts Few /lpf (0 - 2) Urine Mucus Few (None Seen) Urine Glucose Normal mg/dL (Normal) Test 07/03/25 15:28 Red Blood Cell Morphology Normal Prothrombin Time 11.1 sec (9.3-11.8) Prothrombin Time INR 1.05 (0.9-1.15) Activated Partial Thromboplast Time 22.7 SEC (24.5-34.5) Lactic Acid Level 1.9 mmol/L (0.4-2.0) Troponin I High Sensitivity 3 ng/L (</=54) B-Type Natriuretic Peptide 52.04 pg/mL (0-100) Other Laboratory Tests 07/06/25 05:13 Brief Hx & Hospital Course: see dictated note Condition at Discharge: Fair Final Diagnosis/Problems List pneumonia Discharge Disposition: Acute Care Facility Discharge Instruct/Medications Diet: Cardiac 2g Na,low cholest Activity: See Comment Follow Up/Referral: with [place] Medications: per mar Scheduled Amlodipine Besylate (Amlodipine Besylate), 1 TAB PO DAILY, (Reported) Atorvastatin Calcium (Atorvastatin Calcium), 1 TAB PO DAILY, (Reported) Hctz (Hydrochlorothiazide), 1 TAB PO DAILY, (Reported) Losartan Potassium (Losartan Potassium), 75 MG PO DAILY, (Reported) Meloxicam (Meloxicam), 1 TAB PO DAILY, (Reported) Tadalafil (Tadalafil), 1 TAB PO DAILY, (Reported) Tamsulosin Hcl (Tamsulosin Hcl), 1 CAP PO DAILY, (Reported) Discharge Statement: "Patient was advised to return to the ER or call 911 if any headaches, dizziness, shortness of breath, chest pain, abdominal pain, bleeding, fevers, or worsening of medical condition. Patient was counseled about treatment plan, medications, possible side effects, patientverbalized understanding. All questions were answered to the best of my ability. This discharge took greater then 30 minutes in planning, reviewing documentation, counseling the patient, and discussing with other team members." ASSESSMENT ASSESSMENT Assessment pneumonia Date of Service: Jul 06, 2025 Billing Provider: BERNARDINO PÉREZ MD Common Visit Codes: 32801-FQQ/OBS DISCH DAY >30min BERNARDINO PÉREZ MD Jul 06, 2025 14:35
[2025-07-06] MEDS: FUROSEMIDE 20 MG/2 ML VIAL IV ONE (15:52)
[2025-07-06] MEDS: LISINOPRIL 5 MG TAB PO ONE (19:00)
--- NOTE | 2025-07-06 19:55 | DVHDS ---
DATE OF DISCHARGE: 07/06/2025 HISTORY OF PRESENT ILLNESS: The patient is a 74-year-old gentleman who was admitted with history of worsening shortness of breath, chills, and increased confusion. The patient has history of hypertension and hyperlipidemia. HOSPITAL COURSE: The patient had a temperature of 103.1 at admission. His white count was elevated up to 25,000. The patient's creatinine was elevated up to 1.98. A CT chest done showed a right lower lobe consolidation. His blood cultures have been negative. The patient had an echocardiogram done that showed an ejection fraction of 50% to 55%. The patient was also edematous. He will now be transferred to [place] for further management. FINAL DIAGNOSES: * Acute respiratory failure. * Sepsis with pneumonia, gram positive, gram negative with right lower lobe consolidation. * Obesity. * Hypertension. * Acute renal failure. Questionable vasomotor nephropathy. * Anxiety. * Hyperlipidemia. * Likely acute diastolic heart failure. * Encephalopathy, metabolic. Time spent in discharge planning and review of plan with the patient and nursing, and paperwork was 39 minutes. MD ARLIN Delvalle/PEDRITO TID: [id number] RECEIPT: [id number]
[2025-07-06] MEDS: LOSARTAN POTASSIUM 25 MG TAB PO ONE (20:09)
[2025-07-07] VITALS (15 sets, daily range): BP systolic 138–157; BP diastolic 81–101; PULSE 70–93; RESP 16–18; TEMP 97.6–98.2; O2SAT 91–99
[2025-07-07 06:00] LABS: Hematocrit 38.8 % (41.0-53.0); Hemoglobin 12.9 g/dL (13.5-17.5); Mean Corpuscular Hemoglobin 30.0 pg (28.0-32.0); Mean Corpuscular Volume 89.8 fL (80.0-100.0); Nucleated Red Blood Cells % 0.0 %
[2025-07-07 06:09] LABS: Anion Gap 10 (5-15); Carbon Dioxide 26 mmol/L (20-31); Chloride 102 mmol/L (98-107); Potassium 4.0 mmol/L (3.5-5.1); Sodium 138 mmol/L (136-145)
[2025-07-07 06:11] LABS: Calcium 9.3 mg/dL (8.7-10.4)
[2025-07-07 06:15] LABS: BUN/Creatinine Ratio 22.3 (10.0-20.0); Blood Urea Nitrogen 21 mg/dL (9-23); Glucose 94 mg/dL (74-106)
[2025-07-07] MEDS: LISINOPRIL 5 MG TAB PO SCH (10:00)
[2025-07-07] MEDS: LOSARTAN POTASSIUM 25 MG TAB PO SCH (11:34)
[2025-07-07] MEDS: TRIAMTERENE/HCTZ 37.5/25 MG CAP/TAB PO SCH (12:27)
[2025-07-07] MEDS: VANCOMYCIN 1GM/250ML KIT 250 ML IV SCH (18:29)
--- NOTE | 2025-07-07 19:35 | DVHPN2 ---
Subjective SOB better, off oxygen Reviewed: Care Plan Changes from previous H/P or p: No Changes Objective Vitals Vital Signs Date Time Temp Pulse Resp B/P (MAP) Pulse Ox O2 Delivery O2 Flow Rate FiO2 07/07/25 18:53 74 18 99 07/07/25 17:00 98.2 141/88 (105) 98.2 07/07/25 12:21 Room Air* 0 21 Intake/Output Intake and Output 07/07/25 05:00 Intake Total 2555 ml Balance 2555 ml Intake Oral 2255 ml IV Total 300 ml # Voids 10 General Appearance: Alert, Oriented X3 HEENT: Atraumatic Lungs: Clear to auscultation Cardiovascular: Regular rate, Normal S1 Medications Current Medications Medications Dose Ordered Sig/Armando Route Start Time Stop Time Status Last Admin Dose Admin Vancomycin HCl 0 ml @ 0 mls/hr PER PHARMACY IV 07/03/25 19:15 Albuterol 2.5 mg Q6HPRN PRN NEB 07/03/25 19:15 07/04/25 06:54 2.5 MG Atorvastatin Calcium 20 mg HS PO 07/03/25 22:00 07/06/25 21:04 20 MG Ondansetron HCl 4 mg Q4HP PRN IV 07/03/25 19:15 Acetaminophen 650 mg Q6HP PRN PO 07/03/25 19:15 Nitroglycerin 0.4 mg Q5MINP PRN SL 07/03/25 19:15 Morphine Sulfate 2 mg Q30M PRN IV 07/03/25 19:15 Albuterol 2.5 mg Q6HWA [facility] 07/04/25 18:00 07/07/25 18:49 2.5 MG Ipratropium [place] 0.5 mg Q6HWA [facility] 07/04/25 18:00 07/07/25 18:49 0.5 MG Lorazepam 0.5 mg Q8HP PRN IV 07/04/25 17:15 Meropenem 50 ml @ 17 mls/hr Q8H IV 07/05/25 20:00 07/07/25 11:35 17 MLS/HR Triamterene/HCTZ 1 cap DAILY PO 07/07/25 10:00 07/07/25 12:27 1 CAP Lisinopril 10 mg DAILY PO 07/07/25 10:00 Losartan Potassium 75 mg DAILY PO 07/07/25 10:00 07/07/25 11:34 75 MG Vancomycin HCl 250 ml @ 250 mls/hr Q12H IV 07/07/25 18:00 07/07/25 18:29 250 MLS/HR Laboratory Results Laboratory Tests 07/07/25 05:13 Chemistry Test 07/07/25 05:13 Calcium Level 9.3 mg/dL (8.7-10.4) Urinalysis Test 07/03/25 15:40 Urine Color Yellow (Yellow) Urine Clarity Clear (Clear) Urine pH 5.5 (5.0-9.0) Urine Specific [place] 1.020 (1.001-1.035) Urine Protein Trace (Negative) H Urine Ketones Trace (Negative) Urine Blood Trace /uL (Negative) H Urine Nitrite Negative (Negative) Urine Bilirubin Negative (Negative) Urine Urobilinogen Normal mg/dL (Negative) Urine Leukocyte Esterase Negative /uL (Negative) Urine RBC 4 /hpf (0 - 3) Urine Microscopic WBC 1 /HPF (0-3) Urine Squamous Epithelial Cells None seen /hpf (<5) Urine Bacteria None seen /hpf (None Seen) Urine Hyaline Casts Few /lpf (0 - 2) Urine Mucus Few (None Seen) Urine Glucose Normal mg/dL (Normal) Microbiology Microbiology Date/Time Source Procedure Growth Status 07/03/25 15:30 Blood Blood Culture - Preliminary NO GROWTH AFTER 72 HOURS OF INCUBATION. Resulted Assessment/Plan Assessment/Plan #1 sepsis with pneumonia- gram positive/neg: iv antibiotics- meropenem/vanc, ct chest #2 obesity #3 htn #4 acute renal failure ?vasomotor nephropathy #5 anxiety #6 ? acute diastolic/systolic heart failure: lasix iv #7 hyperlipidemia Waiting on bed at [place] Plan discussed with: Patient Date of Service: Jul 07, 2025 Billing Provider: ARGENIS DORSEY MD Common Visit Codes: [id number] INP/OBS CARE(HIGH) ARGENIS DORSEY MD Jul 07, 2025 19:35
[2025-07-08] VITALS (13 sets, daily range): BP systolic 146–158; BP diastolic 88–104; PULSE 64–98; RESP 16–18; TEMP 97.5–98.1; O2SAT 91–99
[2025-07-08 08:34] LABS: Hematocrit 37.5 % (41.0-53.0); Hemoglobin 12.5 g/dL (13.5-17.5); Mean Corpuscular Hemoglobin 29.9 pg (28.0-32.0); Mean Corpuscular Volume 89.7 fL (80.0-100.0); Nucleated Red Blood Cells % 0.2 %
[2025-07-08] MEDS ORDERED: DOXY-111 PO (11:13)
[2025-07-08] MEDS ORDERED: FURO1TAB33 PO (11:13)
--- NOTE | 2025-07-08 13:04 | DVHDS2 ---
Discharge Summary Date of Admission Jul 03, 2025 at 19:07 Date of Discharge: Jul 08, 2025 Labs/Diagnostic Data: Laboratory Results Test 07/08/25 05:58 07/08/25 03:58 07/07/25 05:13 07/07/25 02:50 Creatinine 0.93 mg/dL (0.700-1.30) Glomerular Filtration Rate Calc 87 mL/min (>90) White Blood Count 9.4 10^3/uL (4.4-10.8) Red Blood Count 4.18 10^6/uL (4.5-5.90) Hemoglobin 12.5 g/dL (13.5-17.5) Hematocrit 37.5 % (41.0-53.0) Mean Corpuscular Volume 89.7 fL (80.0-100.0) Mean Corpuscular Hemoglobin 29.9 pg (28.0-32.0) Mean Corpuscular Hemoglobin Concent 33.3 g/dL (32.0-36.0) Red Cell Distribution Width 13.9 % (11.8-14.3) Platelet Count 247 10^3/uL (140-450) Mean Platelet Volume 8.0 fL (6.9-10.8) Neutrophils (%) (Auto) 64.4 % (37.0-80.0) Lymphocytes (%) (Auto) 19.0 % (10.0-50.0) Monocytes (%) (Auto) 13.7 % (0.0-12.0) Eosinophils (%) (Auto) 2.3 % (0.0-7.0) Basophils (%) (Auto) 0.6 % (0.0-2.0) Neutrophils # (Auto) 6.0 10 ^3/uL (1.6-8.6) Lymphocytes # (Auto) 1.8 10 ^3/uL (0.4-5.4) Monocytes # (Auto) 1.3 10 ^3/uL (0-1.3) Eosinophils # (Auto) 0.2 10 ^3/uL (0-0.8) Basophils # (Auto) 0.1 10 ^3/uL (0-0.2) Nucleated Red Blood Cells 0.2 % Sodium Level 138 mmol/L (136-145) Potassium Level 4.0 mmol/L (3.5-5.1) Chloride Level 102 mmol/L (98-107) Carbon Dioxide Level 26 mmol/L (20-31) Anion Gap 10 (5-15) Blood Urea Nitrogen 21 mg/dL (9-23) BUN/Creatinine Ratio 22.3 (10.0-20.0) Serum Glucose 94 mg/dL (74-106) Calcium Level 9.3 mg/dL (8.7-10.4) Vancomycin Level Trough 7.7 ug/mL (5-10) Test 07/05/25 05:21 07/03/25 15:40 07/03/25 15:28 Differential Total Cells Counted 100.0 (100) Neutrophils % (Manual) 70 (37.0-80.0) Band Neutrophils % (Manual) 15 Lymphocytes % (Manual) 8 (10.0-50.0) Monocytes % (Manual) 6 (0-12) Eosinophils % (Manual) 0 (0-7) Basophils % (Manual) 0 (0.0-2.0) Metamyelocytes % (manual) 0 Myelocytes % (Manual) 1 Promyelocytes % (Manual) 0 Blast Cells % (Manual) 0 Reactive Lymphocytes 0 Platelet Estimate Adequate Total Bilirubin 0.8 mg/dL (0.2-1.0) Aspartate Amino Transferase (AST) 44 U/L (13-40) Alanine Aminotransferase (ALT) 29 U/L (7-40) Alkaline Phosphatase 104 U/L (46-116) Total Protein 6.2 g/dL (5.7-8.2) Albumin 3.6 g/dL (3.2-4.8) Urine Color Yellow (Yellow) Urine Clarity Clear (Clear) Urine pH 5.5 (5.0-9.0) Urine Specific [place] 1.020 (1.001-1.035) Urine Protein Trace (Negative) Urine Ketones Trace (Negative) Urine Blood Trace /uL (Negative) Urine Nitrite Negative (Negative) Urine Bilirubin Negative (Negative) Urine Urobilinogen Normal mg/dL (Negative) Urine Leukocyte Esterase Negative /uL (Negative) Urine RBC 4 /hpf (0 - 3) Urine Microscopic WBC 1 /HPF (0-3) Urine Squamous Epithelial Cells None seen /hpf (<5) Urine Bacteria None seen /hpf (None Seen) Urine Hyaline Casts Few /lpf (0 - 2) Urine Mucus Few (None Seen) Urine Glucose Normal mg/dL (Normal) Red Blood Cell Morphology Normal Prothrombin Time 11.1 sec (9.3-11.8) Prothrombin Time INR 1.05 (0.9-1.15) Activated Partial Thromboplast Time 22.7 SEC (24.5-34.5) Lactic Acid Level 1.9 mmol/L (0.4-2.0) Troponin I High Sensitivity 3 ng/L (</=54) B-Type Natriuretic Peptide 52.04 pg/mL (0-100) Other Laboratory Tests 07/08/25 05:58 07/08/25 03:58 07/07/25 05:13 Brief Hx & Hospital Course: 74-year-old male presents for evaluation of shortness for breath. Patient reports a two day history of worsening shortness for breath with chills and palpitations. Denies chest pain. Came with respiratory failure with pneumonia on IV abx got better and did not require any oxygen Condition at Discharge: Good Final Diagnosis/Problems List pneumonia due to gram negative acute hypoxic respiratory failue due to pneumonia Discharge Disposition: Home Discharge Instruct/Medications Diet: Cardiac 2g Na,low cholest Activity: See Comment Follow Up/Referral: [facility] with [facility] Medications: per sep Scheduled Amlodipine Besylate (Amlodipine Besylate), 1 TAB PO DAILY, (Reported) Atorvastatin Calcium (Atorvastatin Calcium), 1 TAB PO DAILY, (Reported) Doxycycline Monohydrate (Doxycycline Monohydrate), 100 MG PO BID Furosemide (Lasix), 1 TAB PO DAILY Hctz (Hydrochlorothiazide), 1 TAB PO DAILY, (Reported) Losartan Potassium (Losartan Potassium), 75 MG PO DAILY, (Reported) Meloxicam (Meloxicam), 1 TAB PO DAILY, (Reported) Tadalafil (Tadalafil), 1 TAB PO DAILY, (Reported) Tamsulosin Hcl (Tamsulosin Hcl), 1 CAP PO DAILY, (Reported) Discharge Statement: "Patient was advised to return to the ER or call 911 if any headaches, dizziness, shortness of breath, chest pain, abdominal pain, bleeding, fevers, or worsening of medical condition. Patient was counseled about treatment plan, medications, possible side effects, patientverbalized understanding. All questions were answered to the best of my ability. This discharge took greater then 30 minutes in planning, reviewing documentation, counseling the patient, and discussing with other team members." ASSESSMENT ASSESSMENT Assessment pneumonia due to gram negative Date of Service: Jul 08, 2025 Billing Provider: ARGENIS DORSEY MD Common Visit Codes: [id number] DISCH DAY >30min ARGENIS DORSEY MD Jul 08, 2025 13:04
== END 2025-07-08 14:35 | disposition home or self-care (01) | DRG 871 ==
LOC: EDBD 15:02 → ER 15:02 → OVERFLOW 19:07 → TELE-CENTR 07-04 17:21
PROVIDERS: ADMIT Hospitalist; ATTEND Hospitalist
DX: A41.50 Gram-negative sepsis, unspecified (principal); G93.41 Metabolic encephalopathy; J15.69 Pneumonia due to other Gram-negative bacteria; J96.01 Acute respiratory failure with hypoxia; J15.9 Unspecified bacterial pneumonia; N17.0 Acute kidney failure with tubular necrosis; E66.9 Obesity, unspecified; I10 Essential (primary) hypertension; E78.5 Hyperlipidemia, unspecified; F41.9 Anxiety disorder, unspecified; N40.0 Benign prostatic hyperplasia without lower urinary tract symptoms; Z68.32 Body mass index [BMI] 32.0-32.9, adult
CPT/HCPCS: 36415; 71045; 71250; 80048; 80053; 80202; 81001; 82565; 83605; 83880; 84484; 85007; 85025; 85027; 85610; 85730; 87040; 93005; 93306; 94640; 97163; 99291; G0378; J0131; J2185